=== PATIENT | female | born 1980 | race Hispanic/Latino ===

== ENCOUNTER 2017-12-24 14:04 | Inpatient (IN) | payer BC ==
[2017-12-24 14:25] VITALS: BMI 26.9
[2017-12-24] MEDS ORDERED: Sodium Chloride 0.9% 1,000 ML IV STA (14:26)
--- NOTE | 2017-12-24 14:55 | ED PDOC ---
Arrival/HPI - General Chief Complaint: Female Genitourinary Time Seen by Provider: 12/24/17 14:19 Historian: Patient - History of Present Illness Narrative History of Present Illness (Text): 12/24/17 14:56 37yo female with past medical history of IDDM who present with complaint of right sided back pain, fever, nausea, nonblood/bilious vomiting, fever x 2days. States she was seen by her PMD yesterday and started Macrobid. States she vomited 7times yesterday and 4times today, so she was unable to keep the medication down. She denies abdominal pain, urinary frequency, dysuria, any other complaint. Past Medical History - Provider Review Nursing Documentation Reviewed: Yes - Reproductive Menopause: No - Cardiac Hx Cardiac Disorders: No - Pulmonary Hx Respiratory Disorders: No - Neurological Hx Neurological Disorder: No - HEENT Hx HEENT Disorder: No - Renal Hx Renal Disorder: No - Endocrine/Metabolic Hx Endocrine Disorders: No - Hematological/Oncological Hx Blood Disorders: No - Integumentary Hx Dermatological Disorder: No - Musculoskeletal/Rheumatological Hx Musculoskeletal Disorders: No - Gastrointestinal Hx Gastrointestinal Disorders: No - Genitourinary/Gynecological Hx Genitourinary Disorders: Yes Hx Urinary Tract Infection: Yes - Psychiatric Hx Psychophysiologic Disorder: No Hx Substance Use: No - Surgical History Hx Section: Yes Other/Comment: eye surgery - Anesthesia Hx Anesthesia: Yes Hx Anesthesia Reactions: No Hx Malignant Hyperthermia: No Family/Social History - Physician Review Nursing Documentation Reviewed: Yes Family/Social History: Unknown Family HX Smoking Status: Never Smoked Hx Alcohol Use: No Hx Substance Use: No Allergies/Home Meds Allergies/Adverse Reactions: Allergies ciprofloxacin [From Cipro] Adverse Reaction (Severe, Verified 12/24/17 14:25) ANGIOEDEMA Home Medications: Home Meds Medication Instructions Recorded Confirmed Insulin Aspart, Recombinant 10 unit SQ AC 12/24/17 12/24/17 [Novolog] Insulin Detemir [Levemir] 30 unit SC HS 12/24/17 12/24/17 Review of Systems - Physician Review All systems were reviewed & negative as marked: Yes - Review of Systems Constitutional: Normal Eyes: Normal ENT: Normal Respiratory: Normal Cardiovascular: Normal Gastrointestinal: Nausea, Vomiting. absent: Abdominal Pain, Constipation, Diarrhea, Hematochezia, Hematemesis Genitourinary Female: Normal Musculoskeletal: Normal Skin: Normal Neurological: Normal Endocrine: Normal Hemo/Lymphatic: Normal Psychiatric: Normal Physical Exam Vital Signs Reviewed: Yes Vital Signs Temp Pulse Resp BP Pulse Ox 12/24/17 18:04 98 F 76 18 110/72 98 12/24/17 17:12 92 H 16 112/65 98 12/24/17 16:02 99.9 F H 103 H 17 118/69 99 12/24/17 14:10 100.9 F H 121 H 18 113/76 96 Temperature: Febrile Blood Pressure: Normal Pulse: Tachycardic Respiratory Rate: Normal Appearance: Positive for: Well-Appearing, Non-Toxic, Comfortable Pain Distress: None Mental Status: Positive for: Alert and Oriented X 3 - Systems Exam Head: Present: Atraumatic, Normocephalic Pupils: Present: PERRL Extroacular Muscles: Present: EOMI Conjunctiva: Present: Normal Mouth: Present: Moist Mucous Membranes Neck: Present: Normal Range of Motion Respiratory/Chest: Present: Clear to Auscultation, Good Air Exchange. No: Respiratory Distress, Accessory Muscle Use Cardiovascular: Present: Regular Rate and Rhythm, Normal S1, S2. No: Murmurs Abdomen: Present: Other (Soft). No: Tenderness, Distention, Peritoneal Signs, Rebound, Guarding, McBurney's Point Tender, Rovsing's Sign Present Back: Present: CVA Tenderness (Right CVAT) Upper Extremity: Present: Normal Inspection. No: Cyanosis, Edema Lower Extremity: Present: Normal Inspection. No: Edema Neurological: Present: GCS=15, CN II-XII Intact, Speech Normal Skin: Present: Warm, Dry, Normal Color. No: Rashes Psychiatric: Present: Alert, Oriented x 3, Normal Insight, Normal Concentration Medical Decision Making ED Course and Treatment: 12/24/17 15:03 37yo female Diabetic present with complaint of fever, vomiting, back pain x 2days. currently on Macrobid. Pt took Tylenol at one o clock. Will repeat temp Labs ordered 1L NS, Zofran 4mg ordered Will re evaluate pt. Pt likely have pyelonephritis. 12/24/17 16:10 Lab was reviewed and leukocytosis was noted. PT's temp and HR improved in Emergency department with hydration. Tylenol was held, hence she took Tylenol this afternoon B[employer]IP[employer]. She does not appear lethargic. She have UTI . She is diabetic and have pyelo, she needs admission for IV abx. Chest X-ray NAD Case was DW Dr. silva and pt was admitted to his service. Result and plan was DW the pt and she agreed. 12/24/17 17:11 Renal US RIGHT KIDNEY: Measures: 3.9 x 5.4 x 11.4 cm. Normal in size, contour and echogenicity. No stone, solid mass lesion or hydronephrosis visualized. LEFT KIDNEY: Measures: 5.1 x 5.1 x 9.9 cm. Normal in size, contour and echogenicity. No stone, solid mass lesion or hydronephrosis visualized. OTHER FINDINGS: None. IMPRESSION: Unremarkable renal sonogram. - Lab Interpretations Lab Results: 12/24/17 14:30 12/24/17 14:30 Lab Results 12/24/17 14:30: Sodium 137, Potassium 4.0, Chloride 99, Carbon Dioxide 25, Anion Gap 17, BUN 14, Creatinine 0.9, Est GFR ( Amer) > 60, Est GFR (Non- Af Amer) > 60, Random Glucose 280 H, Calcium 9.1, Magnesium 1.8, Total Bilirubin 0.4, AST 14, ALT 21, Alkaline Phosphatase 168 H, Total Protein 7.2, Albumin 3.7, Globulin 3.5, Albumin/Globulin Ratio 1.1, Lipase 19 L 12/24/17 14:30: Urine Color Yellow, Urine Appearance Clear, Urine pH 6.0, Ur Specific [place] >= 1.030, Urine Protein 100 H, Urine Glucose (UA) >=1000, Urine Ketones >=80, Urine Blood Moderate H, Urine Nitrate Positive H, Urine Bilirubin Negative, Urine Urobilinogen 0.2, Ur Leukocyte Esterase Negative, Urine RBC 15 - 20, Urine WBC 0 - 2, Ur Epithelial Cells 6 - 8, Urine Bacteria Many, Urine Other Uyeast 12/24/17 14:30: PT 12.6 H, INR 1.10, APTT 25.1 12/24/17 14:30: WBC 19.8 H, RBC 4.43, Hgb 12.6, Hct 37.8, MCV 85.3, MCH 28.4, MCHC 33.3, RDW 13.0, Plt Count 318, MPV 11.0, Gran % 88.1 H, Lymph % (Auto) 3.9 L, [place] % (Auto) 7.8 H, Eos % (Auto) 0.1 L, Baso % (Auto) 0.1, Gran # 17.47 H, Lymph # (Auto) 0.8 L, [place] # (Auto) 1.5 H, Eos # (Auto) 0.0, Baso # (Auto) 0.02 , Neutrophils % (Manual) 92 H, Lymphocytes % (Manual) 3 L, Monocytes % (Manual) 5, Toxic Granulation 2+, Platelet Evaluation Normal, Hypochromasia 1+, Rouleaux 2+ - Medication Orders Current Medication Orders: Insulin Detemir (Levemir) 30 unit SC HS RITA Insulin Human NPH (Humulin N) 10 units SC AC RITA Insulin Human Regular (Humulin R Med) 0 units SC ACHS RITA PRN Reason: Protocol Discontinued Medications Acetaminophen (Tylenol 325mg Tab) 650 mg PO STAT STA Stop: 12/24/17 14:29 Last Admin: 12/24/17 14:36 Dose: Sodium Chloride (Sodium Chloride 0.9%) 1,000 mls @ 1,000 mls/hr IV .Q1H STA Stop: 12/24/17 15:25 Last Admin: 12/24/17 14:40 Dose: 1,000 mls/hr eMAR Start Stop Document 12/24/17 14:40 SF (Rec: 12/24/17 14:40 [id number] Intravenous Solution Start Date 12/24/17 Start Time 14:40 End Date 12/24/17 End time 15:40 Total Infusion Time 60 Ceftriaxone Sodium (Rocephin 1 Gram Ivpb) 1 gm in 100 mls @ 200 mls/hr IVPB STAT STA PRN Reason: Protocol Stop: 12/24/17 15:54 Last Admin: 12/24/17 15:49 Dose: 200 mls/hr eMAR Start Stop Document 12/24/17 15:49 SF (Rec: 12/24/17 15:50 SF [id number]) Intravenous Solution Start Date 12/24/17 Start Time 15:49 End Date 12/24/17 End time 16:20 Total Infusion Time 31 Ondansetron HCl (Zofran Inj) 4 mg IVP STAT STA Stop: 12/24/17 14:27 Last Admin: 12/24/17 14:40 Dose: 4 mg IVP Administration Document 12/24/17 14:40 SF (Rec: 12/24/17 14:40 [id number]) Charges for Administration # of IVP Administrations 1 Disposition/Present on Arrival - Present on Arrival Any Indicators Present on Arrival: No History of DVT/PE: No History of Uncontrolled Diabetes: Yes Urinary Catheter: No History of Decub. Ulcer: No History Surgical Site Infection Following: None - Disposition Have Diagnosis and Disposition been Completed?: Yes Diagnosis: Pyelonephritis Disposition: HOSPITALIZED Disposition Time: 15:40 Patient Plan: Admission Patient Problems: Current Active Problems Problem Status Onset Pyelonephritis Acute Condition: STABLE
[2017-12-24 15:13] LABS: BASO # 0.02 K/mm3 (0.0-2.0); BASO % 0.1 % (0.0-3.0); EOS % 0.1 % (1.5-5.0); GRAN # 17.47 (1.4-6.5); GRAN % 88.1 % (50.0-68.0); HEMOGLOBIN 12.6 g/dL (12.0-16.0); LYMPH # 0.8 (1.2-3.4); LYMPH % 3.9 % (22.0-35.0); MEAN CELL VOLUME 85.3 fl (80.0-105.0); MEAN CORPUSCULAR HEMOGLOBIN 28.4 pg (25.0-35.0); MEAN CORPUSCULAR HGB CONC 33.3 g/dl (31.0-37.0); MONO # 1.5 (0.1-0.6); MONO % 7.8 % (1.0-6.0); PLATELET COUNT 318 10^3/uL (120.0-450.0); RBC 4.43 10^6/uL (3.5-6.1); WHITE BLOOD COUNT 19.8 10^3/ul (4.5-11.0)
[2017-12-24 15:14] LABS: INR 1.1; PROTHROMBIN TIME 12.6 SECONDS (9.4-12.5)
[2017-12-24 15:16] LABS: URINE BILIRUBIN NEGATIVE (NEGATIVE); URINE BLOOD MODERATE (NEGATIVE); URINE GLUCOSE (UA) >=1000 mg/dL (NEGATIVE); URINE LEUKOCYTE ESTERASE NEGATIVE Leu/uL (NEGATIVE); URINE PROTEIN 100 mg/dL (<30 mg/dL); URINE UROBILINOGEN 0.2 E.U./dL (<1 E.U./dL)
[2017-12-24 15:17] LABS: ALB/GLOB RATIO 1.1 (1.1-1.8); ALBUMIN 3.7 g/dL (3.0-4.8); ALT/SGPT 21 U/L (7-56); AST/SGOT 14 U/L (14-36); BLOOD UREA NITROGEN 14 mg/dL (7-21); CALCIUM 9.1 mg/dL (8.4-10.5); GFR AFRICAN-AMERICAN > 60; GFR NON-AFRICAN AMERICAN > 60; LIPASE 19 U/L (23-300); PARTIAL THROMBOPLASTIN TIME 25.1 Seconds (25.1-36.5)
[2017-12-24 15:18] LABS: URINE APPEARANCE CLEAR (CLEAR); URINE COLOR YELLOW (YELLOW)
[2017-12-24 15:23] LABS: URINE BACTERIA MANY (NEG); URINE RBC 15 - 20 /hpf (0-2); URINE WBC 0 - 2 /hpf (0-6)
[2017-12-24] MEDS ORDERED: cefTRIAXone 1 gm 1 GM/100 ML BAG IVPB STA (15:25)
--- NOTE | 2017-12-24 16:57 | US ---
Date of service: 12/24/2017 PROCEDURE: Ultrasound of the Kidneys HISTORY: Right CVAT COMPARISON: None available. TECHNIQUE: Sonogram of the kidneys. FINDINGS: RIGHT KIDNEY: Measures: 3.9 x 5.4 x 11.4 cm. Normal in size, contour and echogenicity. No stone, solid mass lesion or hydronephrosis visualized. LEFT KIDNEY: Measures: 5.1 x 5.1 x 9.9 cm. Normal in size, contour and echogenicity. No stone, solid mass lesion or hydronephrosis visualized. OTHER FINDINGS: None. IMPRESSION: Unremarkable renal sonogram.
--- NOTE | 2017-12-24 17:03 | RAD ---
Date of service: 12/24/2017 HISTORY: admission COMPARISON: No prior. FINDINGS: LUNGS: No active pulmonary disease. PLEURA: No significant pleural effusion identified, no pneumothorax apparent. CARDIOVASCULAR: Normal. OSSEOUS STRUCTURES: No significant abnormalities. VISUALIZED UPPER ABDOMEN: Normal. OTHER FINDINGS: None. IMPRESSION: No active disease.
[2017-12-24 17:10] LABS: HYPOCHROMIA 1+; LYMPHOCYTE 3 % (22.0-35.0); MONOCYTE 5 % (1.0-6.0); NEUTROPHIL 92 % (50.0-70.0); PLATELET ESTIMATE NORMAL (NORMAL)
[2017-12-24 17:11] LABS: ROULEAU 2+; TOXIC GRANULATION 2+
[2017-12-24] MEDS ORDERED: Pneumococcal 23-Valent Vaccine IM ONE (21:38)
[2017-12-24] MEDS: Insulin Detemir 100 units/ml Vial (Levemir) SC SCH (21:42)
[2017-12-24] MEDS: Insulin Reg-MEDIUM-Coverage SC SCH (21:42)
[2017-12-25] MEDS ORDERED: cefTRIAXone 2 GM IN NS 2 GM/100 ML BAG IVPB SCH (10:00)
--- NOTE | 2017-12-25 10:27 | CP.PCM.HP ---
<Candy King - Last Filed: 12/25/17 11:47> History of Present Illness - History of Present Illness History of Present Illness: PGY-[address] Khalil CC: "UTI was worse" Ms Dino, 37F, , with PMHx DM 1 and hx of ICU stay for DKA/severe sepsis due to UTI (2015) presented with right sided back pain, nausea/vomiting, fever x 2days. Pt noticed urine became cloudy several days ago, with fever of Tmax 100.9 at home. She was seen by her PMD Dr Mary on Thursday, started Macrobid. After started Macrobid, she vomited 7 times, non-digested food then turned bilous, non bloody. Yesterday, vomited 4-5 times. She could not tolerate PO/ water intake, which prompted her to the ED. Pt states recounted that she developed n/v the several previous times she had macrobid. ROS: (+) Fever/chills. (+) urine cloudy Denies CP/SOB. Denies dizziness. Denies abdominal pain, urinary frequency , dysuria. Denies numbness In the ED, VS stable WBC 19.8. Glucose 280. Bicarb 17. U/A (+) nitrate and yeast PMHx: DM 1, diagnosed 11 years old, last A1C 9 (4 months ago) Hx DKA Hx ICU stay x 6 days due to severe sepsis from UTI with DKA, 2015 Diabetic retinopathy: bleeding behind left eye had sx 2015, and blood vessel burst in r eye 07/2017 had sx PSH c section x1 eye surgery 2015 left eye bleeding behind eye, and 07/2017 right eye blood vessel burst had sx, FH Mom-DM1; maternal grandfather [place] in old age; Paternal grandmother, colon and uterine cancer SH Live with and teenager son All: Cipro - angioedema Med: Humulog 8-10 units MW x 3; Levemir 25-30 units PMD: Dr Mary Endo: located in [facility] Present on Admission - Present on Admission Any Indicators Present on Admission: No History of Uncontrolled Diabetes: Yes Past Patient History - Past Social History Smoking Status: Never Smoked - CARDIAC Hx Cardiac Disorders: No - PULMONARY Hx Respiratory Disorders: No - NEUROLOGICAL Hx Neurological Disorder: No - HEENT Hx HEENT Problems: Yes Other/Comment: pt had bleeding behind left eye had sx 2015, and blood vessel burst in r eye 07/2017 had sx, denies any loss of vision, pt does wear eyeglasses - RENAL Hx Chronic Kidney Disease: No - ENDOCRINE/METABOLIC Hx Endocrine Disorders: Yes Hx Diabetes Mellitus Type 1: Yes (dx age 11) - HEMATOLOGICAL/ONCOLOGICAL Hx Blood Disorders: No - INTEGUMENTARY Hx Dermatological Problems: No - MUSCULOSKELETAL/RHEUMATOLOGICAL Hx Musculoskeletal Disorders: No Hx Falls: No - GASTROINTESTINAL Hx Gastrointestinal Disorders: No - GENITOURINARY/GYNECOLOGICAL Hx Genitourinary Disorders: Yes Hx Urinary Tract Infection: Yes Other/Comment: pt vs relatives in either or [facility] and suddenly got sick wound up in the hospital icu with uti & diabetic ketoacidosis - PSYCHIATRIC Hx Psychophysiologic Disorder: No Hx Substance Use: No - SURGICAL HISTORY Hx Surgeries: Yes (c section x1) Other/Comment: eye surgery 2015 left eye bleeding behind eye, and 07/2017 right eye blood vessel burst had sx, pt denies vision loss - ANESTHESIA Hx Anesthesia: Yes Hx Anesthesia Reactions: No Hx Malignant Hyperthermia: No Meds Allergies/Adverse Reactions: Allergies Allergy/AdvReac Type Severity Reaction Status Date / Time ciprofloxacin [From Cipro] AdvReac Severe ANGIOEDEMA Verified 12/24/17 14:25 Physical Exam - Constitutional Appears: No Acute Distress - Head Exam Head Exam: ATRAUMATIC, NORMAL INSPECTION, NORMOCEPHALIC - Eye Exam Eye Exam: EOMI, Normal appearance, PERRL. absent: Scleral icterus Pupil Exam: NORMAL ACCOMODATION - ENT Exam ENT Exam: Mucous Membranes Moist - Neck Exam Additional comments: supple - Respiratory Exam Respiratory Exam: Clear to Auscultation Bilateral. absent: Rales, Rhonchi, Wheezes - Cardiovascular Exam Cardiovascular Exam: REGULAR RHYTHM, +S1, +S2. absent: Systolic Murmur - GI/Abdominal Exam GI & Abdominal Exam: Normal Bowel Sounds, Soft. absent: Guarding, Rebound, Rigid Additional comments: suprapubic tenderness - Extremities Exam Extremities exam: Positive for: normal capillary refill, pedal pulses present. Negative for: calf tenderness - Back Exam Back exam: CVA tenderness (R). absent: CVA tenderness (L) - Neurological Exam Neurological exam: Alert, Oriented x3 - Psychiatric Exam Psychiatric exam: Normal Affect, Normal Mood - Skin Skin Exam: Dry, Warm Results - Vital Signs Recent Vital Signs: Last Vital Signs Temp 98.6 F 12/25/17 06:00 Pulse 98 H 12/25/17 06:00 Resp 20 12/25/17 06:00 BP 133/73 12/25/17 06:00 Pulse Ox 95 12/25/17 06:00 - Labs Result Diagrams: 12/24/17 14:30 12/24/17 14:30 Labs: Laboratory Results - last 24 hr 12/24/17 12/25/17 21:34 06:48 POC Glucose (mg/dL) 228 H 148 H Assessment & Plan - Assessment and Plan (Free Text) Plan: Ms Dino, 37F, , with PMHx DM 1 and ICU stay for DKA/severe sepsis due to UTI (2015) presented with right sided back pain, fever, intractable nausea/ vomiting, not able to tolerate macrobid. She was admitted for pyelonephritis. Intractable Nausea/Vomiting, likely side effect of macrobid vs vagal irritation from pyelonephritits - improving - Zofran PRN. Tolerated breakfast - No need for IV fluid, clinically not dry Pyelonephrtitis with CVA tenderness - U/A (+) nitrate; unremarkable renal u/s - Ceftriazone for now, pending ID recs whether to increase coverage for pseudomonas or MRSA. Pending urine culture & sensitivity for choice of PO antibiotics. Follow up of HIV test DM 1 - Insulin NPH AC, Levemir HS, ISSS/Accucheck ACHS. - Pending A1C. Diabetic education Prophylaxis on SCD. Low risk for GI stress ulcer. Discharge planning - Pending culture result for choice of PO. s/r/d/w Dr. Khalil <Alfie Khalil S - Last Filed: 12/28/17 21:02> Results - Vital Signs Recent Vital Signs: Last Vital Signs Temp 97.4 F L 12/27/17 08:36 Pulse 92 H 12/27/17 08:36 Resp 20 12/27/17 08:36 BP 102/60 12/27/17 08:36 Pulse Ox 97 12/27/17 08:36 - Labs Result Diagrams: 12/26/17 06:20 12/26/17 06:20 Labs: Laboratory Results - last 24 hr 12/26/17 12/27/17 12/27/17 21:12 05:40 06:13 POC Glucose (mg/dL) 214 H 54 L 130 H 12/27/17 11:24 POC Glucose (mg/dL) 221 H Assessment & Plan - Assessment and Plan (Free Text) Plan: Pt seen and examined. I have reviewed the note of the medical and health services manager and agree with it. I have discussed the assessment and plan with the resident. I have reviewed the patient's labs and medications. Pt with UTI. She is on IV Abx. UCx is pending. She has a hx of UTI. She has pyelonephritis. Will get ID to evaluate pt.
--- NOTE | 2017-12-25 15:57 | CP.PCM.CON ---
History of Present Illness - History of Present Illness History of Present Illness: 37 year old female with PMH of sepsis and pyelonephritis in 2017, pneumonia in 2017, history of UTI came [place] [facility] [place] of nausea, vomiting, fever, chills as well as right-sided flank pain for the past 2 days. Prior to this she was having dysuria and the patient saw her PMD who gave her Macrobid. She somewhat improved but had dysuria again and completed another 7 day course of Macrobid. She then developed nausea and fever afterwards. She has some urinary frequency but no hematuria, no dysuria, no chest pain, no SOB, no abdominal pain , no diarrhea, no headache or dizziness, no sore throat. Infectious Diseases consult is requested to further evaluate and manage. Review of Systems - Review of Systems All systems: reviewed and no additional remarkable complaints except (as per HPI ) Past Patient History - Past Social History Smoking Status: Never Smoked - CARDIAC Hx Cardiac Disorders: No - PULMONARY Hx Respiratory Disorders: No - NEUROLOGICAL Hx Neurological Disorder: No - HEENT Hx HEENT Problems: Yes Other/Comment: pt had bleeding behind left eye had sx 2015, and blood vessel burst in r eye 07/2017 had sx, denies any loss of vision, pt does wear eyeglasses - RENAL Hx Chronic Kidney Disease: No - ENDOCRINE/METABOLIC Hx Endocrine Disorders: Yes Hx Diabetes Mellitus Type 1: Yes (dx age 11) - HEMATOLOGICAL/ONCOLOGICAL Hx Blood Disorders: No - INTEGUMENTARY Hx Dermatological Problems: No - MUSCULOSKELETAL/RHEUMATOLOGICAL Hx Musculoskeletal Disorders: No Hx Falls: No - GASTROINTESTINAL Hx Gastrointestinal Disorders: No - GENITOURINARY/GYNECOLOGICAL Hx Genitourinary Disorders: Yes Hx Urinary Tract Infection: Yes Other/Comment: pt vs relatives in either or [place] and suddenly got sick wound up in the hospital icu with uti & diabetic ketoacidosis - PSYCHIATRIC Hx Psychophysiologic Disorder: No Hx Substance Use: No - SURGICAL HISTORY Hx Surgeries: Yes (c section x1) Other/Comment: eye surgery 2015 left eye bleeding behind eye, and 07/2017 right eye blood vessel burst had sx, pt denies vision loss - ANESTHESIA Hx Anesthesia: Yes Hx Anesthesia Reactions: No Hx Malignant Hyperthermia: No Meds Allergies/Adverse Reactions: Allergies Allergy/AdvReac Type Severity Reaction Status Date / Time ciprofloxacin [From Cipro] AdvReac Severe ANGIOEDEMA Verified 12/24/17 14:25 - Medications Medications: Current Medications Ceftriaxone Sodium (Rocephin 2 Gm Ivpb) 2 gm in 100 mls @ 100 mls/hr IVPB DAILY RITA PRN Reason: Protocol Insulin Detemir (Levemir) 30 unit SC HS [facility] Last Admin: 12/24/17 21:42 Dose: 30 u Insulin Human NPH (Humulin N) 10 units SC AC RITA Insulin Human Regular (Humulin R Med) 0 units SC ACHS RITA PRN Reason: Protocol Last Admin: 12/24/17 21:42 Dose: Not Given Physical Exam - Constitutional Appears: Chronically Ill - Head Exam Head Exam: NORMAL INSPECTION - ENT Exam ENT Exam: Mucous Membranes Moist - Neck Exam Neck exam: Negative for: Meningismus - Respiratory Exam Respiratory Exam: Decreased Breath Sounds - Cardiovascular Exam Cardiovascular Exam: +S1, +S2 - GI/Abdominal Exam GI & Abdominal Exam: Soft. absent: Tenderness Results - Vital Signs Recent Vital Signs: Last Vital Signs Temp 98.4 F 12/24/17 22:27 Pulse 92 H 12/24/17 22:27 Resp 20 12/24/17 22:27 BP 113/71 12/24/17 22:27 Pulse Ox 100 12/24/17 22:27 - Labs Result Diagrams: 12/24/17 14:30 12/24/17 14:30 Labs: Laboratory Results - last 24 hr 12/24/17 21:34 POC Glucose (mg/dL) 228 H Assessment & Plan - Assessment and Plan (Free Text) Plan: Assessment Sepsis due to right sided pyelonephritis history of sepsis and pyelonephritis in 2017 pneumonia in 2017 history of UTI Plan was started on Rocephin but will switch to Rocephin pending urine cx and blood cx; reviewed ultrasound of the kidneys will monitor clinically
[2017-12-25] MEDS: Insulin Human NPH 1 UNITS/0.01 ML SC SCH (19:51)
[2017-12-25] MEDS: Insulin Reg-MEDIUM-Coverage SC SCH ×3 (19:51→21:48)
[2017-12-25] MEDS: Cefepime IV 2 gm in NS 2 GM/100 ML BAG IVPB SCH (21:02)
[2017-12-25] MEDS: Insulin Detemir 100 units/ml Vial (Levemir) SC SCH (22:43)
[2017-12-26 07:08] LABS: BASO # 0.02 K/mm3 (0.0-2.0); BASO % 0.1 % (0.0-3.0); EOS # 0.3 (0.0-0.7); GRAN # 9.01 (1.4-6.5); GRAN % 66.1 % (50.0-68.0); HEMOGLOBIN 12.4 g/dL (12.0-16.0); LYMPH # 2.7 (1.2-3.4); MEAN CELL VOLUME 85.8 fl (80.0-105.0); MEAN CORPUSCULAR HEMOGLOBIN 28.3 pg (25.0-35.0); MEAN PLATELET VOLUME 10.7 fl (7.0-11.0); MONO # 1.6 (0.1-0.6); MONO % 11.8 % (1.0-6.0); RBC 4.38 10^6/uL (3.5-6.1); WHITE BLOOD COUNT 13.6 10^3/ul (4.5-11.0)
[2017-12-26 07:17] LABS: ALB/GLOB RATIO 0.9 (1.1-1.8); ALBUMIN 3.4 g/dL (3.0-4.8); ALT/SGPT 29 U/L (7-56); AST/SGOT 20 U/L (14-36); BLOOD UREA NITROGEN 11 mg/dL (7-21); GFR AFRICAN-AMERICAN > 60; GFR NON-AFRICAN AMERICAN > 60
[2017-12-26] MEDS: Insulin Human NPH 1 UNITS/0.01 ML SC SCH ×3 (08:54→17:12)
[2017-12-26] MEDS: Insulin Reg-MEDIUM-Coverage SC SCH ×4 (08:54→22:00)
[2017-12-26] MEDS: Cefepime IV 2 gm in NS 2 GM/100 ML BAG IVPB SCH ×2 (08:59→21:30)
[2017-12-26] MEDS ORDERED: Iohexol 240 (50 ml) ONE (10:58)
--- NOTE | 2017-12-26 14:52 | PN ---
Copied To: Kendrick Stinson MD Attending MD: Kendrick Stinson MD. DATE: 12/26/2017 SUBJECTIVE: The patient is seen in bed this morning, doing well, still with pain, but improving, the fevers on a downward trend. PHYSICAL EXAMINATION: VITAL SIGNS: Temperature is 97, blood pressure is 105/60, respiratory rate of 18. HEENT: Unremarkable. NECK: Supple. LUNGS: Have decreased breath sounds. HEART: Normal S1, S2. ABDOMEN: Soft, nontender. LABORATORY DATA: Reveals the patient's white count is down to 13,600, hemoglobin is noted. Chemistries are reviewed. BUN of 11, creatinine of 0.7. Urinalysis is noted, 0 to 2 wbc's. Serology HIV is negative. Microbiology is pending and review of orders reveals the patient to be on cefepime. ASSESSMENT AND PLAN: A 37-year-old female with ALLERGY TO CIPRO, with history of pyelonephritis and pneumonia and urinary tract infections, admitted with sepsis with right-sided pyelonephritis and currently on cefepime and awaiting for blood culture, urine cultures. The patient's white count has improved. She states she has been for many years, in monogamous relationship. Unfortunately, in the Emergency Room, blood cultures were not ordered. No blood cultures available by urine cultures alone. Emergency Room note is reviewed. The patient also had a renal ultrasound. The renal ultrasound is unremarkable. We will order blood cultures now. Although, the patient is already been on antibiotics, we will also order a CT of the abdomen with p.o. contrast. Awaiting for urine cultures. Discussed with Dr. Khalil. Kendrick Stinson MD
--- NOTE | 2017-12-26 15:35 | CT ---
Date of service: 12/26/2017 PROCEDURE: CT Abdomen and Pelvis without intravenous contrast HISTORY: right pylo COMPARISON: None. TECHNIQUE: Without contrast. Contrast dose: Radiation dose: Total exam DLP = 430 mGy-cm. This CT exam was performed using one or more of the following dose reduction techniques: Automated exposure control, adjustment of the mA and/or kV according to patient size, and/or use of iterative reconstruction technique. FINDINGS: LOWER THORAX: Unremarkable. LIVER: Unremarkable. No gross lesion or ductal dilatation. GALLBLADDER AND BILE DUCTS: Unremarkable. PANCREAS: Unremarkable. No gross lesion or ductal dilatation. SPLEEN: Unremarkable. ADRENALS: Unremarkable. No mass. KIDNEYS AND URETERS: There is minimal perinephric stranding around the right kidney which is consistent with the clinical diagnosis of pyelonephritis. There is no evidence of hydronephrosis VASCULATURE: Unremarkable. No aortic aneurysm. BOWEL: Unremarkable. No obstruction. No gross mural thickening. APPENDIX: Unremarkable. Normal appendix. PERITONEUM: There is minimal free fluid in the pelvis LYMPH NODES: Unremarkable. No enlarged lymph nodes. BLADDER: Unremarkable. REPRODUCTIVE: Unremarkable. BONES: No acute fracture. OTHER FINDINGS: None. IMPRESSION: There is minimal perinephric stranding around the right kidney which is consistent with the clinical diagnosis of pyelonephritis. There is no evidence of hydronephrosis
[2017-12-26] MEDS: Insulin Detemir 100 units/ml Vial (Levemir) SC SCH (21:37)
[2017-12-27 01:02] VITALS: PULSE 92; RESP 20; O2SAT 97
--- NOTE | 2017-12-27 01:45 | PN ---
Copied To: Alfie Khalil MD Attending MD: Alfie Khalil MD DATE: 12/26/2017 SUBJECTIVE: The patient has no complaints of any chest pain. No shortness of breath. No headaches or dizziness. PHYSICAL EXAMINATION: VITAL SIGNS: Temperature is 97.5, pulse of 87, blood pressure is 132/90, respirations 18. GENERAL: The patient is lying in bed, flat, comfortable. HEENT: No oral lesion. Anicteric sclerae. Moist mucosa. NECK: No JVD, adenopathy, or thyromegaly. CARDIOVASCULAR: S1 and S2, regular. No murmurs, rubs, or gallops. LUNGS: Clear to auscultation bilaterally. No wheeze, rales, or rhonchi. ABDOMEN: Bowel sounds are positive, soft, nontender and nondistended. EXTREMITIES: No cyanosis, clubbing or edema. LABORATORY DATA: White count of 13.6, hemoglobin 12.4. Creatinine is 0.7. CT of the abdomen and pelvis done shows minimal perinephric stranding around the right kidney consistent with diagnosis of pyelonephritis. No evidence of hydronephrosis. ASSESSMENT: 1. Right-sided pyelonephritis. 2. Diabetes type 1. PLAN: The patient is currently improving. She states that her pain has improved. She has an improvement of her white count. Initial white count was 19, it is 13.6. The patient's HIV is negative. Urine did show nitrites that were heavily positive. The patient has blood cultures that showed Gram-negative rods. The patient is going to be on insulin for her diabetes. Her diabetes is controlled. I did speak to Dr. Stinson regarding the case. The patient is currently on cefepime 2 g IV every 12 hours. The patient is on for antibiotics, and is going to be on carbohydrate consistent diet. Once the culture results show sensitivities to oral antibiotics, the patient can be discharged home. Alfie Khalil MD
[2017-12-27 08:36] VITALS: BP 102/60; TEMP 97.4
[2017-12-27] MEDS: Insulin Human NPH 1 UNITS/0.01 ML SC SCH ×2 (10:42→12:10)
[2017-12-27] MEDS: Insulin Reg-MEDIUM-Coverage SC SCH ×2 (10:42→12:10)
[2017-12-27] MEDS: Cefepime IV 2 gm in NS 2 GM/100 ML BAG IVPB SCH (10:42)
--- NOTE | 2017-12-27 18:14 | PN ---
Copied To: Kendrick Stinson MD Attending MD: Kendrick Stinson MD DATE: 12/27/2017 SUBJECTIVE: The patient is in bed, in no acute distress, nontoxic. PHYSICAL EXAMINATION: VITAL SIGNS: Temperature is 97, blood pressure is 102/60, respiratory rate of 20, heart rate of 92. HEENT: Unremarkable. NECK: Supple. LUNGS: Have decreased breath sounds. HEART: Normal S1, S2. ABDOMEN: Soft. LABORATORY DATA: Reveals the white count has come down to 13,000. Urinalysis is noted. HIV is negative. Microbiology reveals E. coli in the urine. The blood cultures are negative and CAT scan of the abdomen and pelvis is negative. ASSESSMENT AND PLAN: A 37-year-old female with ALLERGY TO CIPRO and history of pyelonephritis and pneumonia, urinary tract infection, admitted with sepsis, right-sided Escherichia coli pyelonephritis, now improving, may switch to p.o. antibiotics as discussed with Dr. Khalil. Kendrick Stinson MD
--- NOTE | 2017-12-28 07:30 | DS ---
Copied To: Alfie Khalil MD Attending MD: Alfie Khalil MD HISTORY OF PRESENT ILLNESS: This is a 37-year-old female who had come into the hospital, was found to have sepsis secondary to right-sided pyelonephritis. The patient had a high white count and fever. Antibiotics were started. She had E. coli urinary tract infection. She is ALLERGIC TO CIPROFLOXACIN, so she was given Rocephin and antibiotics, she improved her symptoms. A CAT scan was done and showed right-sided abnormality on the CAT scan of her kidneys. She was discharged home. PHYSICAL EXAMINATION: VITAL SIGNS: Temperature is 97.4, pulse of 92, blood pressure is 102/60, respirations 20, O2 saturation 97%. GENERAL: The patient is lying in bed, flat, comfortable. HEENT: No oral lesion. Anicteric sclerae. Moist mucosa. NECK: No JVD, adenopathy, or thyromegaly. CARDIOVASCULAR: S1 and S2, regular. No murmurs, rubs, or gallops. LUNGS: Clear to auscultation bilaterally. No wheeze, rales, or rhonchi. ABDOMEN: Bowel sounds are positive, soft, nontender and nondistended. EXTREMITIES: No cyanosis, clubbing or edema. ASSESSMENT: 1. Sepsis secondary to right-sided pyelonephritis. 2. Urinary tract infection secondary to Escherichia coli. PLAN: The patient is going to be discharged on Vantin, I spoke with Dr. Stinson, he agrees the patient cleared her for discharge. She is going to follow up with Dr. Mary in 1 to 2 weeks. Condition is stable. Activities increase as tolerated. Alfie Khalil MD
== END 2017-12-27 12:28 | disposition home or self-care (01) | DRG 872 ==
LOC: ED 14:04 → ERH 15:38 → 5RNO 18:24
PROVIDERS: ADMIT Internal Medicine Nephrology; ATTEND Internal Medicine Nephrology
DX: A41.9 Sepsis, unspecified organism (principal); N12 Tubulo-interstitial nephritis, not specified as acute or chronic; B96.20 Unspecified Escherichia coli [E. coli] as the cause of diseases classified elsewhere; E10.319 Type 1 diabetes mellitus with unspecified diabetic retinopathy without macular edema; Z79.4 Long term (current) use of insulin; Z87.440 Personal history of urinary (tract) infections; Z88.1 Allergy status to other antibiotic agents; Z82.49 Family history of ischemic heart disease and other diseases of the circulatory system; Z83.3 Family history of diabetes mellitus; Z80.0 Family history of malignant neoplasm of digestive organs; Z80.49 Family history of malignant neoplasm of other genital organs